=== PATIENT | male | born 1985 | race Two or more races ===

== ENCOUNTER → 2025-06-25 | Outpatient (CLI) | payer MEDICAID, SELFPAY ==
--- NOTE | 2025-06-25 | XR_ITS ---
Examination: Lumbar spine, 5 views Technique: Lumbar spine AP, lateral, coned lateral lower lumbar spine, bilateral obliques 5 views Exam date and time: June 25, 2025, 1155 hours INDICATION: Low back pain beginning 3 months ago. FINDINGS: Lumbar dextroscoliosis 10 degrees Mild diffuse facet arthropathy No lumbar fracture Moderate to advanced lumbar degenerative disc disease lower 3 lumbar levels No spondylolisthesis IMPRESSION: Moderate to advanced degenerative disc disease lower 3 lumbar levels
== END | disposition home or self-care (01) ==
PROVIDERS: PCP Internal Medicine; Referring Provider Internal Medicine; Visit Provider Internal Medicine
DX: M51.360 Other intervertebral disc degeneration, lumbar region with discogenic back pain only (principal)
CPT/HCPCS: 72110